=== PATIENT | female | born 2000 | race Caucasian/White ===

== ENCOUNTER → 2018-02-18 | Outpatient (CLI) | payer OTHER ==
--- NOTE | 2018-02-18 08:01 | DIAGNOSTIC IMAGING REPORT ---
ABDOMINAL ULTRASOUND COMPLETE HISTORY: Generalized abdominal pain.. COMPARISON: Abdominal ultrasound 04/08/2016. FINDINGS: Pancreas: The pancreas demonstrates a normal echotexture. Liver: Unremarkable. Gallbladder: No gallbladder wall thickening. No gallstones. CBD: 4 mm. Kidneys: No hydronephrosis. Spleen: Normal in size measuring 11.7 cm. Aorta: Normal in caliber. IVC: Patent. IMPRESSION: No significant abnormality identified within the within the abdomen. Electronically signed by: Robin Pang M.D. 02/18/2018 7:59 AM Dictated Date/Time: 02/18/2018 7:58 AM
--- NOTE | 2018-02-18 09:37 | DIAGNOSTIC IMAGING REPORT ---
PELVIC ULTRASOUND, TRANSABDOMINAL HISTORY: Generalized abdominal PAIN,HEAVY MENSES COMPARISON: Pelvic ultrasound 10/26/2012. FINDINGS: The patient deferred transvaginal scanning. Uterus: 7.9 x 4.8 x 3.2 cm. No uterine masses. Endometrial stripe: 6 mm in thickness. Right ovary: Normal in size and demonstrates normal color flow. Left ovary: Normal in size and demonstrates normal color flow. Miscellaneous:No pelvic free fluid. IMPRESSION: No significant abnormality identified within the pelvis. Electronically signed by: Robin Pang M.D. 02/18/2018 9:36 AM Dictated Date/Time: 02/18/2018 9:27 AM
== END | disposition home or self-care (01) ==
LOC: C.ULTR 07:03
PROVIDERS: ATTEND Family Medicine
DX: R10.9 Unspecified abdominal pain (principal); N92.5 Other specified irregular menstruation